=== PATIENT | male | born 1980 | race African-American/Black ===

== ENCOUNTER → 2020-06-09 12:17 | Outpatient (BNVA) | payer OTHER, SELFPAY | PROVIDERS: PCP Internal Medicine; Referring Provider Internal Medicine; Visit Provider Surgery | DX: E66.9 Obesity, unspecified (principal); Z68.38 Body mass index [BMI] 38.0-38.9, adult; Z98.84 Bariatric surgery status | CPT/HCPCS: 99214 ==

== ENCOUNTER → 2020-06-23 08:04 | Outpatient (BNVA) | payer OTHER, SELFPAY | PROVIDERS: Visit Provider Surgery | DX: E66.9 Obesity, unspecified (principal); Z68.39 Body mass index [BMI] 39.0-39.9, adult; Z90.3 Acquired absence of stomach [part of]; Z71.3 Dietary counseling and surveillance | CPT/HCPCS: 99213 ==

== ENCOUNTER → 2020-07-21 08:03 | Outpatient (BNVA) | payer OTHER, SELFPAY | PROVIDERS: Visit Provider Dietitian, Registered | DX: Z76.89 Persons encountering health services in other specified circumstances (principal) ==

== ENCOUNTER → 2020-07-28 08:15 | Outpatient (BNVA) | payer OTHER, SELFPAY | PROVIDERS: PCP Internal Medicine; Visit Provider Dietitian, Registered | DX: Z76.89 Persons encountering health services in other specified circumstances (principal) ==

== ENCOUNTER → 2020-09-14 08:12 | Outpatient (BNVA) | payer OTHER, SELFPAY | PROVIDERS: PCP Internal Medicine; Visit Provider Physician Assistant ==

== ENCOUNTER → 2020-10-05 08:20 | Outpatient (BNVA) | payer OTHER, SELFPAY | PROVIDERS: PCP Internal Medicine; Visit Provider Physician Assistant ==

== ENCOUNTER → 2020-11-24 08:11 | Outpatient (BNVA) | payer OTHER, SELFPAY | PROVIDERS: PCP Internal Medicine; Visit Provider Dietitian, Registered ==

== ENCOUNTER → 2020-12-10 08:40 | Outpatient (BNVA) | payer OTHER, SELFPAY | PROVIDERS: PCP Internal Medicine; Visit Provider Physician Assistant ==

== ENCOUNTER 2025-08-01 11:38 | Outpatient (AMB) | payer MEDICARE, MEDICAID, SELFPAY ==
--- NOTE | 2025-08-01 12:03 | A.PHYSOV ---
Vital Signs 08/01/25 12:05 Height 5 ft 9 in Weight 264 lb BMI 39.0 Intake Visit Reasons: Recent fall- injured back & cummings Intake Note: Patient is a 45 year old male here to be evaluated due to recent fall. Patient presents with back and cummings pain. 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 Approximately two months ago, he was walking down stairs with his cane when the cane slipped, causing him to fall. During the fall, his cummings struck the edge of a stair, his leg was pulled behind him, and he felt a pop in his hip. He also sustained a bruised toe, which has since healed, but the cummings and hip pain have persisted. The cummnigs pain is described as a constant burning sensation, which becomes a sharp pain when he leans forward or lays on his side. His intermittent hip pain comes and goes, and he reports some associated groin pain. He also experiences occasional knee pain, particularly when straightening his leg. Workup for the injury has included X-rays and an ultrasound of the cummings, both of which were negative. His past medical history is significant for diabetes and sciatica, though he states the sciatica has not been an issue recently. He was previously prescribed gabapentin for sciatica but discontinued it after his symptoms improved. Due to the progressive pain from his new injury, he has canceled several physical therapy appointments and was subsequently discharged from care. Pain Description - Onset: The pain began approximately two months ago after a fall down stairs. - Location: The pain is located in the left cummings, left hip, and occasionally radiates to the left knee. - Quality: The cummings pain is characterized as a constant burning sensation that can become sharp. - Exacerbating factors: The cummings pain worsens with leaning forward and lying on the affected side. - Interference with function: The pain has progressively worsened, preventing him from participating in physical therapy and performing core exercises at home. Results - X-ray of the cummings and down: Negative for fracture. - Ultrasound of the cummings and down: No significant findings reported. [facility] Medical History Depression Anxiety Hypercholesterolemia Surgical History S/P laparoscopic sleeve gastrectomy History of hand surgery History of sleeve gastrectomy (Unknown) Family History Father History of breast cancer Mother History of cancer Son No problems noted. Social History Alcohol intake: current Alcohol intake frequency: other Alcohol type: hard liquor Review of Systems Narrative Review of Systems - Musculoskeletal: Reports intermittent left hip pain, occasional left knee pain, and persistent left cummings pain. - Neurological: Reports a constant burning sensation in his left cummings. - General: Denies significant back pain but reports general soreness. - All other systems reviewed and are negative. Physical Exam Exam Exam: Physical Exam - General: Patient appears to have lost weight. - Back: No tenderness to palpation of the lumbar spine. - Range of Motion: Lumbar extension is non-painful. - Provocative Testing: Lumbar flexion elicits sharp pain in the left cummings. - Left Hip: Tenderness to palpation over the trochanteric region. - Left Knee: Tenderness to palpation on the medial aspect. - Left Lower Extremity: The cummings is tender to palpation. - Neurological: Straight leg raise test is negative for provocation of cummings pain. Vital Signs: BMI result Body Mass Index 39.0 Assessment & Plan Assessment & Plan (1) Trochanteric bursitis of left hip: Code(s): M70.62 - Trochanteric bursitis, left hip Category: Medical (2) Sprain of left knee: Code(s): S83.92XA - Sprain of unspecified site of left knee, initial encounter Category: Medical Qualifiers: Encounter type: initial encounter Involved ligament of knee: unspecified collateral ligament Qualified Code(s): S83.402A - Sprain of unspecified collateral ligament of left knee, initial encounter (3) Contusion of cummings of left lower leg: Code(s): S80.12XA - Contusion of left lower leg, initial encounter Category: Medical Plan Pain Management - Affect: The patient expressed concern that his current pain might become another chronic issue. - Analgesia: The patient is currently using Tylenol but reports that ibuprofen is more effective for his pain. - Activities of Daily Living: The pain has worsened to the point where he had to cancel physical therapy appointments and could not perform his home exercises. - Adverse Effects: No adverse effects from current medications were reported. - Aberrant Drug Related Behaviors: None noted. Plan Patient was informed and verbally consented to the use of an ambient scribe for clinic note documentation during this visit. 1. Left Leg Injury With Neuropathic Pain The patient sustained a significant contusion to his left cummings after a fall, and recent imaging has ruled out a fracture. The persistent burning quality of the pain is suggestive of a neuropathic component, possibly related to direct trauma or his underlying diabetes. The plan is to prescribe ibuprofen for pain and inflammation. The patient is encouraged to restart gabapentin, which he has on hand, to address the neuropathic burning sensation. A referral for physical therapy will be placed to focus on the cummings, knee, and hip. 2. Left Hip Pain The patient reports left hip pain and a popping sensation that started with the fall. Physical exam findings are consistent with possible trochanteric bursitis, which may have developed from the initial contusion or compensatory gait changes. The initial management will be conservative, with a course of ibuprofen and physical therapy. If his symptoms do not improve with these measures, a cortisone injection is a potential future treatment option. Discussion Notes I discussed with the patient that his injury from the fall appears to be a significant contusion or deep bone bruise, and I reassured him that negative X-rays are a good sign. I explained that such injuries can take many weeks or even months to fully heal. I noted the burning quality of his cummings pain is indicative of nerve pain, for which he could try restarting his prior prescription of gabapentin. For his hip pain, I explained the possibility of bursitis, and we reviewed treatment options including physical therapy and anti-inflammatories, with a cortisone injection as a future possibility if needed. We agreed on a plan to prescribe ibuprofen and a referral for physical therapy targeting his hip, knee, and cummings. I advised him to follow up after his course of physical therapy to reassess his progress. Patient Instructions - I have prescribed ibuprofen for your pain. - You may take it three times a day for the first week, and be sure to take it with food. - After one week, use the ibuprofen only as needed for more severe pain. - You can consider restarting your gabapentin prescription to help with the burning sensation in your cummings. - I have ordered physical therapy for your left hip, knee, and cummings. - You will need a new referral for physical therapy; you can either call your previous facility or choose a new one. - Please return for a follow-up visit after completing your course of physical therapy, especially if your pain persists. - If you are still having significant hip pain after therapy, we can discuss a cortisone injection at your next visit. Orders: Orders PT Evaluation and Treatment Today M70.62 - Trochanteric bursitis, left hip, S80.12XA - Contusion of left lower leg, initial encounter, S83.92XA - Sprain of unspecified site of left knee, initial encounter Medications: New ibuprofen 800 mg PO TID 90 tabs 0RF 30 days M70.62 - Trochanteric bursitis, left hip, S80.12XA - Contusion of left lower leg, initial encounter, S83.92XA - Sprain of unspecified site of left knee, initial encounter Coding Level of Care Code Tele Est Pt Level 4 (68210) Diagnoses Trochanteric bursitis of left hip M70.62 Sprain of collateral ligament of left knee, initial encounter S83.402A Encounter type: initial encounter Involved ligament of knee: unspecified collateral ligament Contusion of cummings of left lower leg S80.12XA
[2025-08-01 12:05] VITALS: BMI 39.0
== END 2025-08-01 12:51 | disposition home or self-care (01) ==
LOC: HO.HPHYS 11:38
PROVIDERS: PCP Internal Medicine; Visit Provider Physician Assistant
DX: M70.62 Trochanteric bursitis, left hip (principal); S83.402A Sprain of unspecified collateral ligament of left knee, initial encounter; S80.12XA Contusion of left lower leg, initial encounter
CPT/HCPCS: 99214

== ENCOUNTER → 2025-08-01 11:38 | Outpatient (BNVA) | payer MEDICARE, MEDICAID, SELFPAY | PROVIDERS: PCP Internal Medicine; Visit Provider Physician Assistant | DX: S83.402A Sprain of unspecified collateral ligament of left knee, initial encounter (principal); S80.12XA Contusion of left lower leg, initial encounter; M70.62 Trochanteric bursitis, left hip | CPT/HCPCS: 99212 ==